=== PATIENT | female | born 1965 | race Caucasian/White ===

== ENCOUNTER 2019-05-26 14:16 | Observation (INO) ==
[2019-05-26] MEDS ORDERED: methylPREDNISolone SOD SUC 125 MG/2 ML VIAL IV STA (14:55)
[2019-05-26] MEDS ORDERED: ALBUTEROL 2.5 MG/3 ML NEB RESP TX STA (14:55)
[2019-05-26 15:12] LABS: Basophils # 0.1 10*3/uL (0.0-0.2); Basophils % 0.7 % (0.0-0.8); Eosinophils % 0.1 % (0.00-10.9); Hematocrit 46.1 VOL% (35.7-47.0); Hemoglobin 14.1 GM/DL (12.0-16.0); Immature Granulocytes % 1.1 %; Immature Granulocytes Absolute 0.08 #; Mean Corpuscular HGB Conc 30.6 GM/DL (32-36); Mean Corpuscular Volume 97.3 FL (87-102); Mean Platelet Volume 12.2 FL (9.6-12.0); Monocytes % 6.7 % (1.7-12.7); Neutrophils % 64.4 % (38.7-73.9); Platelet Count 164 T/CUMM (130-400); Red Blood Count 4.74 MC/CUMM (3.8-5.5); Red Cell Distribution Width 13.9 % (9.3-17.3); White Blood Count 7.5 T/CUMM (4-12)
[2019-05-26 15:18] LABS: Alanine Aminotransferase 19 U/L (13-56); Albumin 3.7 G/DL (3.4-5.0); Alkaline Phosphatase 101 U/L (45-117); Aspartate Amino Transferase 20 U/L (0-37); Bilirubin,Total < 0.39 MG/DL (0.2-1.0); Blood Urea Nitrogen 15 MG/DL (7-18); Estimated Glom Filtration Rate 82 ML/MIN; Glucose 99 MG/DL (74-106); Osmolality,Calculated 279.4 MOS/KG (273-304); Partial Thromboplastin Time 33.8 SECS (20.8-36.0)
[2019-05-26 15:39] LABS: ABG Base Excess -2.6 MMOL/L (-2.5-2.5); ABG HCO3 22.2 MMOL/L (20-26); ABG Oxygen Saturation 95.3 % (95-100); ABG PCO2 33.9 MM HG (35-48); ABG PH 7.407 (7.35-7.45); ABG PO2 87.1 MM HG (80-95); ABG TCO2 18.6 MMOL/L (23-27)
[2019-05-26] MEDS ORDERED: CALCIUM CARBONATE CHEW 500 MG TABLET PO PRN (16:13)
[2019-05-26] MEDS ORDERED: POTASSIUM CHLORIDE RIDER 10 MEQ in PREMIX 1 EACH IV PRN (16:13)
[2019-05-26] MEDS ORDERED: hydrALAZINE 20 MG/1 ML VIAL IV PRN (16:13)
[2019-05-26] MEDS ORDERED: NICOTINE 21 MG/24 HR PATCH TRANSDERM PRN (16:13)
[2019-05-26] MEDS ORDERED: traZODone 50 MG TABLET PO PRN (16:13)
[2019-05-26] MEDS ORDERED: ONDANSETRON 4 MG/2 ML VIAL IV PRN (16:13)
[2019-05-26] MEDS ORDERED: MAGNESIUM SULF RIDER 2 GM in PREMIX 1 EACH IV PRN (16:13)
[2019-05-26] MEDS ORDERED: diphenhydrAMINE CAP 25 MG CAPSULE PO PRN (16:13)
[2019-05-26] MEDS ORDERED: BISACODYL 5 MG TABLET PO PRN (16:13)
[2019-05-26] MEDS ORDERED: MAGNESIUM SULF RIDER 4 GM in PREMIX 1 EACH IV PRN (16:13)
[2019-05-26] MEDS ORDERED: ZALEPLON 5 MG CAPSULE PO PRN (16:13)
[2019-05-26] MEDS ORDERED: SIMETHICONE CHEW 125 MG TABLET PO PRN (16:13)
[2019-05-26] MEDS ORDERED: DOCUSATE SODIUM 100 MG CAPSULE PO PRN (16:13)
[2019-05-26] MEDS ORDERED: ALUMINUM/MAGNES/SIMETH MAX STR 30 ML UDCUP PO PRN (16:13)
[2019-05-26] MEDS ORDERED: guaiFENesin/DM ER 600-30 MG TABLET PO PRN (16:13)
[2019-05-26 16:22] LABS: Apearance,Urine CLEAR (Clear); Bilirubin,Urine Negative (Negative); Blood, Urine Negative (Negative); Glucose,Urine (UA) Negative (Negative); Ketones,Urine 5 mg/dL (Negative); Mucus,Urine Occasional /LPF (Occasional); Nitrite,Urine Negative (Negative); Protein,Urine Negative; Urine Color Yellow (Yellow); Urine Specific Gravity 1.018 (1.001-1.035); Urine Urobilinogen < 2.0 EU/DL (0.2-1.0); WBC,Urine 1 /HPF (0-6)
[2019-05-26] MEDS ORDERED: AZITHROMYCIN 250 MG TABLET PO SCH (16:30)
[2019-05-26 16:37] LABS: Barbiturates Screen,Urine Negative (Negative); Benzodiazepines Screen,Urine Negative (Negative); Cannabinoid Screen,Urine Negative (Negative); Opiate Screen,Urine Positive (Negative); Phencyclidine Screen,Urine Negative (Negative)
[2019-05-26] MEDS ORDERED: METHOCARBAMOL 500 MG TABLET PO PRN (17:00)
[2019-05-26] MEDS: SODIUM CHLORIDE 0.9% 1,000 ML IV SCH (17:52)
[2019-05-26] MEDS: cefTRIAXone 1,000 MG in SYRINGE 1 EACH IV SCH (17:52)
[2019-05-26] MEDS: ENOXAPARIN 40 MG/0.4 ML SYRINGE SUBCUT SCH (17:56)
[2019-05-26] MEDS: ALBUTEROL/IPRATROPIUM 3 ML NEB RESP TX SCH (19:34)
[2019-05-26] MEDS: ALBUTEROL 0.4 MG/ML 30 ML/BOTTLE PO SCH (20:30)
[2019-05-26] MEDS: buPROPion 100 MG TABLET PO SCH (20:31)
[2019-05-26] MEDS: FLUTICASONE/SALMETEROL 500-50 DISKUS 14 DOSE INH SCH (20:31)
[2019-05-26] MEDS: AZITHROMYCIN 250 MG TABLET PO SCH (20:31)
[2019-05-26] MEDS: GABAPENTIN 300 MG CAPSULE PO SCH (20:31)
[2019-05-26] MEDS: HYDROmorphone 2 MG TABLET PO PRN (20:40)
[2019-05-26] MEDS ORDERED: METHOCARBAMOL 500 MG TABLET PO SCH (21:00)
[2019-05-27] MEDS ORDERED: INFLUENZA VIRUS VACCINE 0.5 ML SYRINGE IM ONE (00:36)
[2019-05-27] MEDS: ALBUTEROL/IPRATROPIUM 3 ML NEB RESP TX SCH ×4 (00:49→21:35)
[2019-05-27] MEDS: methylPREDNISolone SOD SUC 40 MG/1 ML VIAL IV SCH ×3 (02:40→16:01)
[2019-05-27] MEDS: SODIUM CHLORIDE 0.9% 1,000 ML IV SCH ×3 (03:15→19:03)
[2019-05-27 06:05] LABS: Basophils % 0.2 % (0.0-0.8); Hematocrit 37.2 VOL% (35.7-47.0); Hemoglobin 11.9 GM/DL (12.0-16.0); Immature Granulocytes % 0.8 %; Immature Granulocytes Absolute 0.04 #; Lymphocytes # 0.5 10*3/uL (1.4-4.0); Lymphocytes % 9.5 % (21.3-54.2); Mean Corpuscular Volume 93.5 FL (87-102); Monocytes % 1.6 % (1.7-12.7); Neutrophils % 87.9 % (38.7-73.9); Platelet Count 223 T/CUMM (130-400); Red Blood Count 3.98 MC/CUMM (3.8-5.5)
[2019-05-27 06:33] LABS: Alanine Aminotransferase 18 U/L (13-56); Albumin 3.1 G/DL (3.4-5.0); Alkaline Phosphatase 86 U/L (45-117); Aspartate Amino Transferase 17 U/L (0-37); Bilirubin,Total < 0.39 MG/DL (0.2-1.0); Blood Urea Nitrogen 14 MG/DL (7-18); Calcium 8.5 MG/DL (8.5-10.1); Estimated Glom Filtration Rate 101 ML/MIN; Glucose 156 MG/DL (74-106); HDL Cholesterol 42 MG/DL (40-60); Osmolality,Calculated 286.1 MOS/KG (273-304); Risk Ratio 3.17; Thyroid Stimulating Hormone 0.236 uIU/ml (0.358-3.74); Total Protein 6.9 G/DL (6.4-8.3); Triglycerides 63 MG/DL (2-150); VLDL CHOLESTEROL 12.6 MG/DL
[2019-05-27] MEDS: AZITHROMYCIN 250 MG TABLET PO SCH (09:31)
[2019-05-27] MEDS: PANTOPRAZOLE 40 MG TABLET PO SCH (09:31)
[2019-05-27] MEDS: buPROPion 100 MG TABLET PO SCH ×2 (09:31→21:06)
[2019-05-27] MEDS: ENOXAPARIN 40 MG/0.4 ML SYRINGE SUBCUT SCH (09:32)
[2019-05-27] MEDS: cefTRIAXone 1,000 MG in SYRINGE 1 EACH IV SCH (09:33)
[2019-05-27] MEDS: ALBUTEROL 0.4 MG/ML 30 ML/BOTTLE PO SCH ×3 (09:34→21:56)
[2019-05-27] MEDS: FLUTICASONE/SALMETEROL 500-50 DISKUS 14 DOSE INH SCH ×2 (09:35→21:08)
[2019-05-27] MEDS: HYDROmorphone 2 MG TABLET PO PRN ×2 (10:24→19:19)
[2019-05-27] MEDS: GABAPENTIN 300 MG CAPSULE PO SCH (21:06)
[2019-05-28] MEDS: methylPREDNISolone SOD SUC 40 MG/1 ML VIAL IV SCH ×2 (00:19→08:19)
[2019-05-28] MEDS: ALBUTEROL/IPRATROPIUM 3 ML NEB RESP TX SCH ×2 (01:40→06:59)
[2019-05-28] MEDS: HYDROmorphone 2 MG TABLET PO PRN (04:28)
[2019-05-28] MEDS: SODIUM CHLORIDE 0.9% 1,000 ML IV SCH (04:29)
[2019-05-28 05:50] LABS: Basophils % 0.2 % (0.0-0.8); Hematocrit 34.2 VOL% (35.7-47.0); Hemoglobin 10.9 GM/DL (12.0-16.0); Immature Granulocytes % 0.9 %; Immature Granulocytes Absolute 0.12 #; Lymphocytes # 0.5 10*3/uL (1.4-4.0); Lymphocytes % 3.5 % (21.3-54.2); Mean Corpuscular HGB Conc 31.9 GM/DL (32-36); Mean Corpuscular Volume 94.5 FL (87-102); Mean Platelet Volume 11.3 FL (9.6-12.0); Monocytes % 2.5 % (1.7-12.7); Neutrophils % 92.9 % (38.7-73.9); Platelet Count 175 T/CUMM (130-400); Red Blood Count 3.62 MC/CUMM (3.8-5.5); Red Cell Distribution Width 14.2 % (9.3-17.3); White Blood Count 13.3 T/CUMM (4-12)
[2019-05-28 06:19] LABS: Band Neutrophils 1 % (0-10); Hypochromasia Slight; Lymphocytes 2 % (20-55); Segmented Neutrophils 95 % (50-85); Total Cells Counted 100
[2019-05-28 06:20] LABS: Bilirubin,Total 1.3 MG/DL (0.2-1.0); Calcium 8.7 MG/DL (8.5-10.1); Microcytosis Slight; Osmolality,Calculated 282.1 MOS/KG (273-304); Total Protein 6.6 G/DL (6.4-8.3)
[2019-05-28] MEDS ORDERED: FUROSEMIDE 20 MG/2 ML VIAL IV ONE (06:53)
[2019-05-28 08:14] VITALS: BP 143/69
[2019-05-28] MEDS: AZITHROMYCIN 250 MG TABLET PO SCH (08:17)
[2019-05-28] MEDS: ENOXAPARIN 40 MG/0.4 ML SYRINGE SUBCUT SCH (08:17)
[2019-05-28] MEDS: buPROPion 100 MG TABLET PO SCH (08:21)
[2019-05-28] MEDS: PANTOPRAZOLE 40 MG TABLET PO SCH (08:21)
[2019-05-28] MEDS: ALBUTEROL 0.4 MG/ML 30 ML/BOTTLE PO SCH (08:23)
[2019-05-28] MEDS: cefTRIAXone 1,000 MG in SYRINGE 1 EACH IV SCH (08:25)
[2019-05-28] MEDS: FLUTICASONE/SALMETEROL 500-50 DISKUS 14 DOSE INH SCH (08:25)
== END 2019-05-28 11:30 | disposition home or self-care (01) ==
LOC: N.ED 14:16 → N.EDINP 14:16 → N.2E 18:18 → N.TELEN 05-27 20:07
PROVIDERS: ADMIT Internal Medicine; ATTEND Internal Medicine